=== PATIENT | female | born 1985 | race Two or more races ===

== ENCOUNTER 2025-06-05 20:03 | Emergency (ER) | payer MEDICARE, OTHER ==
[~2025-06-05] VITALS: Ht 157.5 cm; Wt 61.2 kg
[2025-06-05 20:13] VITALS: BP 115/72
[2025-06-05] MEDS ORDERED: LIDOCAINE 2%-EPI 1:100,000 20 ML VIAL ONE (20:28)
[2025-06-05] MEDS: LIDOCAINE 2%-EPI 1:100,000 20 ML VIAL IJ ONE (20:28)
[2025-06-05] MEDS ORDERED: TDAP DIPH,PERTUSS,TET VAC/PF 0.5 ML DISP.SYRIN IM ONE ×2 (20:52→21:00)
[2025-06-05] MEDS ORDERED: AMOXICILLIN-CLAVUL 875-125MG TABLET ONE (20:52)
[2025-06-05] MEDS: AMOXICILLIN-CLAVUL 875-125MG TABLET PO ONE (20:58)
[2025-06-05] MEDS ORDERED: NEOMY/BACITRA/POLYMYXIN B OINT UD PACKET TP ONE (21:18)
[2025-06-05] MEDS: NEOMY/BACITRA/POLYMYXIN B OINT UD PACKET TP ONE (21:23)
[2025-06-05] MEDS ORDERED: AMOX-430 PO (21:28)
[2025-06-05 22:04] VITALS: BP 115/72; TEMP 98; O2SAT 100
== END 2025-06-05 22:04 | disposition home or self-care (01) ==
LOC: ER 20:05
DX: S91.351A Open bite, right foot, initial encounter (principal); W54.0XXA Bitten by dog, initial encounter; Y93.89 Activity, other specified; Y92.89 Other specified places as the place of occurrence of the external cause; Y99.8 Other external cause status
CPT/HCPCS: 90715; A4606; A4663

== ENCOUNTER 2025-06-17 10:34 | Emergency (ER) | payer MEDICARE ==
[~2025-06-17] VITALS: Ht 157.5 cm; Wt 61.2 kg
[~2025-06-17 10:34] MED LIST: AMOX-430 PO
[2025-06-17 10:38] VITALS: BP 118/77
[2025-06-17] MEDS ORDERED: CEFD300C3 PO (11:09)
[2025-06-17 11:21] VITALS: BP 118/77; TEMP 98.1; O2SAT 99
== END 2025-06-17 11:22 | disposition home or self-care (01) ==
LOC: ER 10:34
DX: S81.811D Laceration without foreign body, right lower leg, subsequent encounter (principal); W54.0XXD Bitten by dog, subsequent encounter
CPT/HCPCS: A4606; A4663

== ENCOUNTER 2025-06-22 16:05 | Emergency (ER) | payer MEDICARE ==
[~2025-06-22] VITALS: Ht 160 cm; Wt 60.8 kg
[~2025-06-22 16:05] MED LIST changes: +CEFD300C3 PO
[2025-06-22 16:11] VITALS: BP 107/67
[2025-06-22 16:54] VITALS: BP 107/67; TEMP 208.6; O2SAT 100
== END 2025-06-22 16:56 | disposition home or self-care (01) ==
LOC: ER 16:09
DX: S81.811D Laceration without foreign body, right lower leg, subsequent encounter (principal); Z48.02 Encounter for removal of sutures; W54.0XXD Bitten by dog, subsequent encounter
CPT/HCPCS: A4606; A4663